=== PATIENT | female | born 1950 | race Two or more races ===

== ENCOUNTER 2018-07-14 15:52 | Inpatient (IN) | payer MEDICAID, OTHER ==
[~2018-07-14] VITALS: Ht 162.6 cm; Wt 72.2 kg
[~2018-07-14 15:52] MED LIST: ALBU8.5H8 INH; AMOX1TAB16 PO; ATOR10TA PO; BENA20TA9 PO; INSU100V10 SQ
[2018-07-14] MEDS ORDERED: IV NS 0.9% 500 ML BAG IV ONE (16:30)
[2018-07-14] MEDS ORDERED: ONDANSETRON HCL/PF 4 MG/2 ML VIAL IVP ONE (16:30)
[2018-07-14] MEDS ORDERED: MORPHINE SULFATE INJ 2 MG/ML DISP.SYRIN IV ONE (16:30)
[2018-07-14] MEDS ORDERED: ONDANSETRON HCL/PF 4 MG/2 ML VIAL ONE (16:32)
[2018-07-14] MEDS ORDERED: MORPHINE SULFATE INJ 4 MG/ML DISP.SYRIN ONE (16:33)
[2018-07-14 16:51] LABS: BASOPHILS # (AUTO) 0.2 /CMM (0.0-0.2); HEMATOCRIT 40 % (33-45); HEMOGLOBIN 12.9 g/dL (11.5-14.8); LYMPHOCYTES # (AUTO) 2.1 /CMM (0.8-4.8); LYMPHOCYTES % (AUTO) 13.3 % (20.0-44.0); MEAN CORPUSCULAR HGB CONC 33 g/dl (31.0-36.0); MEAN CORPUSCULAR VOLUME 77 fL (82-100); MONOCYTES # (AUTO) 1.1 /CMM (0.1-1.30); MONOCYTES % (AUTO) 6.8 % (2.0-12.0); NEUTROPHILS # (AUTO) 11.9 /CMM (1.8-8.9); NEUTROPHILS % (AUTO) 77.9 % (43.0-81.0); PLATELET COUNT (AUTO) 298 /CMM (150-450); RDW COEFFICIENT OF VARIATION 14.7 (11.5-15.0); RED BLOOD CELL COUNT(AUTO) 5.21 MIL/uL (4.0-5.2); WHITE BLOOD COUNT (AUTO) 15.5 K/uL (4.3-11.0)
[2018-07-14 17:12] LABS: ALBUMIN 2.8 g/dL (3.4-5.0); BILIRUBIN,DIRECT 0.1 mg/dL (0.0-0.2); BILIRUBIN,TOTAL 0.4 mg/dL (0.2-1.0); CALCIUM, SERUM 7.9 mg/dL (8.5-10.1); CREATININE 1.4 mg/dL (0.6-1.3); POTASSIUM 4.8 mmol/L (3.5-5.1); TOTAL PROTEIN, SERUM 7.4 g/dL (6.4-8.2)
[2018-07-14] MEDS ORDERED: HYDROMORPHONE 1 MG/1 ML DISP.SYRIN ONE (17:20)
--- NOTE | 2018-07-14 17:23 | NUR ---
CALLED ALIVIA EVERETT FOR PLASTIC EYE TECHNICIAN MD FOR THIS PATIENT, WAS PAGED.
[2018-07-14] MEDS ORDERED: HYDR12.5 PO (17:25)
[2018-07-14] MEDS ORDERED: ALBU8.5H8 IH (17:25)
[2018-07-14] MEDS ORDERED: GABA-532 PO (17:25)
[2018-07-14] MEDS ORDERED: DOCU-106 PO (17:25)
[2018-07-14] MEDS ORDERED: TRAM50TA2 PO (17:25)
[2018-07-14] MEDS ORDERED: CITA10TA9 PO (17:25)
[2018-07-14] MEDS ORDERED: PIRF267C PO (17:25)
[2018-07-14] MEDS ORDERED: HUM10VIA3 SQ (17:26)
[2018-07-14] MEDS ORDERED: INSULIN REGULAR, HUMAN 100 UNIT/ML 10 ML VIAL ONE (17:26)
--- NOTE | 2018-07-14 17:29 | NUR ---
BLOOD SUGAR 453. 10 UNITS REGULAR INSULIN GIVEN SQ R DELTOID. WITNESSED W/ GLORY LAWS. L DELTOID
[2018-07-14] MEDS ORDERED: INSULIN REGULAR, HUMAN 100 UNIT/ML 10 ML VIAL SQ ONE ×2 (17:30→19:00)
[2018-07-14] MEDS ORDERED: HYDROMORPHONE 1 MG/1 ML DISP.SYRIN IV ONE (17:30)
--- NOTE | 2018-07-14 17:43 | NUR ---
FAMILY DOMINIC LEFT CONTACT # [phone]
--- NOTE | 2018-07-14 17:48 | NUR ---
CALLED NURSING SUP REQUESTED TELE BED FOR THIS PATIENT
--- NOTE | 2018-07-14 17:54 | NUR ---
ADMITING STATES COORDINATOR FOR THIS PATIENT WILL PAGE WARRANT CLERK FOR [facility]
[2018-07-14] MEDS ORDERED: VANCOMYCIN 1 GM in IV D5W 250 ML IV ONE (18:00)
--- NOTE | 2018-07-14 18:32 | NUR ---
CALLED TERRENCE LONDON
--- NOTE | 2018-07-14 18:38 | NUR ---
PAGED DR HUTSON FOR CONSULT FOR THIS PATIENT.
[2018-07-14] MEDS ORDERED: INSULIN GLARGINE, 100 UNIT/ML CARTRIDGE SQ ONE ×2 (19:50→22:00)
[2018-07-14 20:00] VITALS: BP 140/66
[2018-07-14 20:15] VITALS: BP 140/66
--- NOTE | 2018-07-14 20:29 | NUR ---
PLACED CALL AND SPOKE TO DR. ALVRAEZ RECEIVE ORDERS FROM DR. ALVAREZ PLACED IN CHART NOTED AND CARRIED OUT FAX TO PHARMACY
--- NOTE | 2018-07-14 20:30 | NUR ---
MS RN NOTES RECEIVE PT FROM [facility]IA [facility] AT 2015 PT A/O X 4, [place] SPEAKING. RESPIRATIONS EVEN AND UNLABORED. HEAD TO TOE ASSESSMENT IS DONE SKIN INTACT. IN STABLE CONDITION SON AT BEDSIDE. NOTED WITH R WRIST SWELLING ELEVATED IN PILLOWS WITH ICE COMPRESSION. MEDICATED FOR PAIN R WRIST. KEPT PT CLEAN AND DRY &COMFORTABLE. NEEDS ATTENDED. WILL CONTINUE TO MONITOR. Addendum: 07/15/18 at 0116 by STACEY VILLATORO RN MEDICATED AND GIVEN PO NORCO 5/325 MG AT 2105
[2018-07-14] MEDS ORDERED: DEXTROSE 50%-WATER 50 ML DISP.SYRIN IV PRN (21:00)
[2018-07-14] MEDS ORDERED: ACETAMINOPHEN 325 MG TABLET PO PRN (21:00)
[2018-07-14] MEDS: HYDROCODONE/APAP 5/325MG 1 EACH TABLET PO PRN (21:05)
[2018-07-14] MEDS ORDERED: INSULIN REGULAR, HUMAN 100 UNIT/ML 3 ML VIAL ONE (21:30)
[2018-07-14] MEDS: BLOOD SUGAR DIAGNOSTIC 1 EACH STRIP VI SCH (21:31)
[2018-07-14] MEDS ORDERED: PIPERACILLIN /TAZOBACTAM 3.375 G VIAL IV ONE (21:43)
[2018-07-14] MEDS: PIPERACILLIN /TAZOBACTAM 3.375 G in IV D5W 50 ML IV SCH (21:49)
[2018-07-14] MEDS: *INSULIN REGULAR(HUMULIN R)HUM 100 UNIT/ML VIAL SQ PRN (22:23)
[2018-07-15] MEDS: HYDROCODONE/APAP 5/325MG 1 EACH TABLET PO PRN ×2 (03:44→08:28)
[2018-07-15] MEDS ORDERED: PIPERACILLIN /TAZOBACTAM 3.375 G VIAL IV ONE (05:17)
[2018-07-15] MEDS: PIPERACILLIN /TAZOBACTAM 3.375 G in IV D5W 50 ML IV SCH (05:28)
[2018-07-15] MEDS: BLOOD SUGAR DIAGNOSTIC 1 EACH STRIP VI SCH ×4 (05:33→22:23)
[2018-07-15] MEDS: INSULIN REGULAR, HUMAN 100 UNIT/ML 3 ML VIAL SQ PRN ×3 (05:34→18:11)
--- NOTE | 2018-07-15 06:07 | NUR ---
MS RN CLOSING NOTES ASLEEP AND EASILY AWAKEN, STABLE, ON 3LPM VIA NC O2 SAT AT 95%. NOT IN DISTRESS. RESPIRATION EVEN AND UNLABORED. KEPT CLEAN AND DRY AND COMFORTABLE, ALL NURSING CARE RENDERED. NEEDS ATTENDED AND ANTICIPATED. NO COMPLAIN OF PAIN AT THIS TIME. ELEVATED R WRIST AT PILLOWS AND CONTINOS ICE COMPRESS. ON LOW BED AT ALL TIMES TO ENSURE SAFETY. SAFE HAZARD FREE ENVIRONMENT PROVIDED. CALL LIGHT WITHIN EASY TO REACH. WILL ENDORSE NEXT SHIFT CONTINUITY OF CARE.
[2018-07-15 07:01] LABS: BASOPHILS % (AUTO) 0.2 % (0.0-2.0); EOSINOPHILS % (AUTO) 1.6 % (0.0-6.0); HEMATOCRIT 39 % (33-45); HEMOGLOBIN 12.8 g/dL (11.5-14.8); LYMPHOCYTES # (AUTO) 3.3 /CMM (0.8-4.8); LYMPHOCYTES % (AUTO) 20.9 % (20.0-44.0); MEAN CORPUSCULAR HGB CONC 32 g/dl (31.0-36.0); MEAN CORPUSCULAR VOLUME 78 fL (82-100); MONOCYTES # (AUTO) 1.6 /CMM (0.1-1.30); MONOCYTES % (AUTO) 10.2 % (2.0-12.0); NEUTROPHILS # (AUTO) 10.7 /CMM (1.8-8.9); NEUTROPHILS % (AUTO) 67.1 % (43.0-81.0); PLATELET COUNT (AUTO) 297 /CMM (150-450); RDW COEFFICIENT OF VARIATION 15.1 (11.5-15.0); RED BLOOD CELL COUNT(AUTO) 5.07 MIL/uL (4.0-5.2); WHITE BLOOD COUNT (AUTO) 15.9 K/uL (4.3-11.0)
[2018-07-15 07:08] LABS: CALCIUM, SERUM 8.5 mg/dL (8.5-10.1); CREATININE 1.4 mg/dL (0.6-1.3); POTASSIUM 4.3 mmol/L (3.5-5.1)
[2018-07-15] MEDS ORDERED: FEE PK DOSING 1 MIN EA MC ONE (07:14)
[2018-07-15] MEDS ORDERED: ALBUTEROL FS 2.5 MG/3 ML VIAL.NEB NEB PRN (07:30)
[2018-07-15] MEDS ORDERED: TRAMADOL HCL 50 MG TABLET PO PRN (07:30)
[2018-07-15 08:00] VITALS: BP 145/60
--- NOTE | 2018-07-15 08:00 | NUR ---
RN NOTES RECEIVED PATIENT IN THE BED A/O X3 [place] SPEAKER, PATIENT HAS NO ACUTE RESPIRATORY DISTRESS. PATIENT WAS C/O PAIN ON RIGHT FOREARM REDNESS, AND PER MD KEEP ELEVATED, ALSO APPLIED ICE ON RIGHT FOREARM. ASSIST BED SIDE COMMODE. PATIENT HAS IV ACCESS ON LEFT HAND INTACT. NEEDS ATTENDED AND ANTICIPATED, CALL LIGHT WITHIN TO REACH, SAFETY PRECAUTION MAINTAINED ALL THE TIME.
--- NOTE | 2018-07-15 08:28 | NUR ---
rn notes ADMINISTERED NARCO 5/325 MG PO PRN FOR RIGHT ARM PIN 05/25 PER PATIENT REQUEST, V/S TAKEN BP 145/ 60, P- 75, ENCOURAGED PATIENT INCREASE FLUID INTAKE. CONTINUED MONITORING.
[2018-07-15] MEDS ORDERED: HYDROCHLOROTHIAZIDE 25 MG TABLET PO SCH (09:00)
[2018-07-15] MEDS ORDERED: GABAPENTIN 400 MG CAPSULE PO PRN (09:00)
--- NOTE | 2018-07-15 09:16 | NUR ---
RN NOTES PER DR MORELOS ONE TIME ORDER MORPHINE SULF 2 MG/ML X1 NOW , ORDER TAKEN AND CARRIED OUT.
--- NOTE | 2018-07-15 09:25 | NUR ---
RN NOTES PER DR MORELOS ASPIRATED FLUIDS FROM RIGHT WRIST. PATIENT TOLERATED PROCEDURE WELL, SPECIMEN SANDED TO THE LAB.
[2018-07-15] MEDS ORDERED: MORPHINE SULFATE INJ 4 MG/ML DISP.SYRIN IV ONE (09:30)
[2018-07-15] MEDS: BENAZEPRIL HCL 20 MG TABLET PO SCH ×3 (10:10→12:54)
[2018-07-15] MEDS: CITALOPRAM HYDROBROMIDE 10 MG TABLET PO SCH (10:10)
[2018-07-15] MEDS: LISINOPRIL (20MG) 20 MG TABLET PO SCH (11:30)
[2018-07-15] MEDS: PIPERACILLIN /TAZOBACTAM 2.25 G in IV D5W 50 ML IV SCH ×3 (12:47→23:37)
[2018-07-15] MEDS: INSULIN GLARGINE, 100 UNIT/ML CARTRIDGE SQ SCH ×2 (12:53→22:27)
[2018-07-15] MEDS: HYDROCODONE/APAP 10/325MG 1 EA TABLET PO PRN ×2 (13:28→18:08)
--- NOTE | 2018-07-15 13:28 | NUR ---
rn notes ADMINISTERED NARCO 10/325 MG PO PRN FOR RIGHT FOREARM PAIN 05/25 PER PATIENT REQUEST, V/S TAKEN BP -151/ 73, P-75, CONTINUED MONITORING.
[2018-07-15] MEDS: VANCOMYCIN 1 GM in IV D5W 250 ML IV SCH (13:35)
[2018-07-15 16:00] VITALS: BP 176/85
--- NOTE | 2018-07-15 18:08 | NUR ---
RN NOTES ADMINISTERED NARCO 10/325 MG/PO PRN FOR RIGHT ARM PAIN 05/25 PER PATIENT REQUEST, ALSO PATIENT WAS C/O NAUSEA, CALLED DR ALVAREZ WAITING FOR RESPOND.
--- NOTE | 2018-07-15 18:38 | NUR ---
RN NOTES RECEDED CALL BACK FROM DR ALVAREZ GET PO ORDER NORVASC 5 MG PO X1 NOW, ZOFRAN 4 MG PO PRN FOR NAUSEA/ VOMITING Q 4HR, ALSO CLONIDINE 0,1 MG Q 6HR PO PRN BP GRATER THAN 160. ORDER TAKEN AND CARRIED OUT.
--- NOTE | 2018-07-15 18:51 | NUR ---
RN NOTES ADMINISTERED ZOFRAN 4 MG/ML IV PUSH FOR NAUSEA PER PATIENT REQUEST, ALSO ADMINISTERED NORVASC 5 MG PO X1 NOW, CONTINUED MONITORING.
[2018-07-15 18:53] VITALS: BP 117/66
[2018-07-15] MEDS ORDERED: CLONIDINE HCL 0.1 MG TABLET PO PRN (19:00)
[2018-07-15] MEDS ORDERED: AMLODIPINE BESYLATE 5 MG TABLET PO ONE (19:00)
--- NOTE | 2018-07-15 19:15 | NUR ---
RN NOTES MEDICATION WERE ADMINISTERED FOR NAUSEA EFFECTIVE, V/S STABLE. ENDORSED ONCOMING NURSE FOR PLAN OF CARE.
--- NOTE | 2018-07-15 19:25 | NUR ---
RN OPENING NOTES PATIENT RECEIVED IN BED, ALERT AND ORIENTED X 4, VERBALLY RESPONSIVE, DAUGHTER AT BEDSIDE. PATIENT WITH NO SOB, DENIES PAIN, IN NO ACUTE DISTRESS. ALL PATIENT'S NEEDS ATTENDED TO AT THIS TIME. WILL CONTINUE TO MONITOR PT.
[2018-07-15 20:00] VITALS: BP 126/64
[2018-07-15] MEDS: *INSULIN REGULAR(HUMULIN R)HUM 100 UNIT/ML VIAL SQ PRN (22:27)
--- NOTE | 2018-07-16 01:07 | NUR ---
RN NOTES PATIENT WITH COMPLAINT OF ITCHING ALL OVER, PER SKIN ASSESSMENT, NO REDNESS NOTED, NO RASHES, PT WITH NO SOB, BREATHING EVEN AND UNLABORED. PER PT, SHE RECEIVED MORPHINE IN THE MORNING. CALLED DR. BELLAMY AND RECEIVED NEW ORDER FOR BENADRYL 25 MG IV PUSH [id number] PRN. ALL ORDERS NOTED AND CARRIED OUT.
[2018-07-16] MEDS: diphenhydrAMINE HCL 50 MG/ML VIAL IV PRN ×3 (01:25→21:23)
[2018-07-16] MEDS: PIPERACILLIN /TAZOBACTAM 2.25 G in IV D5W 50 ML IV SCH ×4 (05:19→23:21)
[2018-07-16] MEDS: ONDANSETRON HCL/PF 4 MG/2 ML VIAL IV PRN (05:24)
[2018-07-16] MEDS: VANCOMYCIN 1 GM in IV D5W 250 ML IV SCH (06:14)
[2018-07-16] MEDS: DOCUSATE SODIUM 100 MG CAPSULE PO PRN (06:21)
[2018-07-16] MEDS: HYDROCODONE/APAP 10/325MG 1 EA TABLET PO PRN ×2 (06:21→16:05)
[2018-07-16 06:39] LABS: BASOPHILS % (AUTO) 0.1 % (0.0-2.0); EOSINOPHILS % (AUTO) 3.2 % (0.0-6.0); HEMATOCRIT 40 % (33-45); HEMOGLOBIN 12.9 g/dL (11.5-14.8); LYMPHOCYTES # (AUTO) 2.2 /CMM (0.8-4.8); LYMPHOCYTES % (AUTO) 13.8 % (20.0-44.0); MEAN CORPUSCULAR HGB CONC 32 g/dl (31.0-36.0); MEAN CORPUSCULAR VOLUME 79 fL (82-100); MONOCYTES # (AUTO) 1.2 /CMM (0.1-1.30); MONOCYTES % (AUTO) 7.6 % (2.0-12.0); NEUTROPHILS # (AUTO) 11.8 /CMM (1.8-8.9); NEUTROPHILS % (AUTO) 75.3 % (43.0-81.0); PLATELET COUNT (AUTO) 311 /CMM (150-450); RDW COEFFICIENT OF VARIATION 15.2 (11.5-15.0); RED BLOOD CELL COUNT(AUTO) 5.12 MIL/uL (4.0-5.2); WHITE BLOOD COUNT (AUTO) 15.7 K/uL (4.3-11.0)
[2018-07-16] MEDS: BLOOD SUGAR DIAGNOSTIC 1 EACH STRIP VI SCH ×4 (06:50→22:31)
[2018-07-16] MEDS: INSULIN REGULAR, HUMAN 100 UNIT/ML 3 ML VIAL SQ PRN ×3 (06:52→16:17)
[2018-07-16 07:02] LABS: CALCIUM, SERUM 8.8 mg/dL (8.5-10.1); CREATININE 1.6 mg/dL (0.6-1.3); POTASSIUM 4.3 mmol/L (3.5-5.1)
--- NOTE | 2018-07-16 07:25 | NUR ---
RN NOTES PATIENT IN BED, ALERT AND ORIENTED, IN NO ACUTE DISTRESS, NO SOB, BREATHING EVEN AND UNLABORED, IV ATB INFUSING WELL. ALL PATIENT'S NEEDS ATTENDED TO. PLACED CALL LIGHT WITHIN EASY REACH. WILL ENDORSE TO AM SHIFT NURSE FOR CONTINUITY OF CARE.
[2018-07-16 08:00] VITALS: BP 159/83
--- NOTE | 2018-07-16 08:00 | NUR ---
RECEIVED PATIENT IN THE BED A/O X3/4 [place] SPEAKER, PATIENT RESTING, MEDICATION WERE ADMINISTERED FOR PAIN EFFECTIVE, SCHEDULED MEDICATION ADMINISTERED, ASSIST ADL'S, AND BED SIDE COMMODE. IV ACCESS ON LEFT HAND INTACT, CALL LIGHT WITHIN TO REACH. NEEDS ATTENDED AND ANTICIPATED. CALL LIGHT WITHIN TO REAC, KEEP RIGHT ARM ELEVATED USING PILLOWS. SON NEXT TO THE BED.
[2018-07-16] MEDS ORDERED: BENAZEPRIL HCL 20 MG TABLET PO SCH (09:00)
[2018-07-16] MEDS: CITALOPRAM HYDROBROMIDE 10 MG TABLET PO SCH (10:03)
[2018-07-16] MEDS: INDOMETHACIN 25 MG CAPSULE PO SCH ×2 (10:03→16:04)
[2018-07-16] MEDS: AMLODIPINE BESYLATE 5 MG TABLET PO SCH (10:03)
[2018-07-16] MEDS: LISINOPRIL (20MG) 20 MG TABLET PO SCH (10:04)
[2018-07-16] MEDS: ESBRIET 267 MG PO SCH ×3 (10:05→16:06)
--- NOTE | 2018-07-16 10:11 | NUR ---
RN NOTES ADMINISTERED BENADRYL 25 MG /ML IV PUSH FOR ITCHING PER PATIENT REQUEST, CONTINUED MONITORING.
--- NOTE | 2018-07-16 13:30 | NUR ---
rn notes PATIENT BACK FROM SURGERY AT THIS TIME, STABLE A/O X4, PATIENT HAS NO ACUTE RESPIRATORY DISTRESS, V/S TAKEN BP -126/64, P-74, T-98, O2-98 ROOM AIR, R-20. PATIENT REFUSED PAIN AT THIS TIME. PATIENT HAS WOUND VAC ON RIGHT HEEL CONTINUED 125 MMHG PRESSURE. KEEP RIGHT LEG ELEVATED WITH PILLOW, KEEP DRESSING DRY, CLEAN, AND INTACT. FIRST DRESSING WILL CHANGE BY DR LEAL ON MONDAY BS-149 MG/DL PATIENT REFUSED COVERAGE, INFUSING NS AT 50 ML/HR ON LEFT AC AREA INTACT. CALL LIGHT WITHIN TO REACH, SAFETY PRECAUTION MAINTAINED ALL THE TIME. Addendum: 07/16/18 at 1547 by FRANTZ BELTRAN RN ABOVE NOTES WRONG 1330 TANNER.
[2018-07-16 16:00] VITALS: BP 141/72
[2018-07-16] MEDS: LACTOBACILLUS RHAMNOSUS GG 1 EACH CAP.SPRINK PO SCH (16:04)
--- NOTE | 2018-07-16 16:05 | NUR ---
RN NOTES ADMINISTERED NARCO 10/325 MG PO PRN FOR RIGHT WRIST PAIN 05/25 PER PATIENT REQUEST. V/S TAKEN STABLE, CALL LIGHT WITHIN TO REACH, SAFETY PRECAUTION MAINTAINED ALL THE TIME.
--- NOTE | 2018-07-16 18:34 | NUR ---
RN NOTES PATIENT EATING DINNER BS-279 MG/DL, COVERAGE GIVEN, ADMINISTERED SCHEDULED MEDICATION, KEEP RIGHT HAND ELEVATED USING PILLOWS, NO ICE PER MD ORDER, ASSIST TURN AND REPOSTION. CALL LIGHT WITHIN TO REACH. ENDORSED ONCOMING NURSE FOR PLAN OF CARE.
--- NOTE | 2018-07-16 19:20 | NUR ---
RN OPENING NOTES RECEIVED PT IN BED, IN NO ACUTE DISTRESS, RIGHT ARM ELEVATED ON A PILLOW ABOVE HEART. ALL PATIENT'S NEEDS ATTENDED TO. PLACED CALL LIGHT WITHIN REACH. PT'S SON AT BEDSIDE. WILL CONTINUE TO MONITOR.
[2018-07-16 20:00] VITALS: BP 132/69
[2018-07-16] MEDS ORDERED: INSULIN GLARGINE, 100 UNIT/ML CARTRIDGE SQ SCH (22:00)
[2018-07-16] MEDS: *INSULIN REGULAR(HUMULIN R)HUM 100 UNIT/ML VIAL SQ PRN (22:33)
[2018-07-17] MEDS: VANCOMYCIN 1 GM in IV D5W 250 ML IV SCH (00:42)
[2018-07-17] MEDS: PIPERACILLIN /TAZOBACTAM 2.25 G in IV D5W 50 ML IV SCH (05:48)
--- NOTE | 2018-07-17 06:25 | NUR ---
RN CLOSING NOTES PATIENT IN BED, ALERT AND ORIENTED X 4, ASLEEP BUT EASILY AROUSABLE, VERBALLY RESPONSIVE, NO SOB NOTED, BREATHING EVEN AND UNLABORED, ALL DUE MEDICATION GIVEN, ALL PATIENT'S NEEDS ATTENDED TO THROUGHOUT THE SHIFT. PLACED CALL LIGHT WITHIN EASY REACH. WILL ENDORSE TO AM SHIFT NURSE FOR CONTINUITY OF CARE.
[2018-07-17] MEDS: HYDROCODONE/APAP 10/325MG 1 EA TABLET PO PRN (06:30)
[2018-07-17] MEDS: DOCUSATE SODIUM 100 MG CAPSULE PO PRN (06:30)
[2018-07-17] MEDS: INSULIN REGULAR, HUMAN 100 UNIT/ML 3 ML VIAL SQ PRN ×2 (06:55→12:25)
[2018-07-17] MEDS: BLOOD SUGAR DIAGNOSTIC 1 EACH STRIP VI SCH ×2 (06:56→12:23)
[2018-07-17 07:33] LABS: CALCIUM, SERUM 8.9 mg/dL (8.5-10.1); CREATININE 1.4 mg/dL (0.6-1.3); POTASSIUM 4.1 mmol/L (3.5-5.1)
[2018-07-17 07:34] LABS: BASOPHILS % (AUTO) 0.1 % (0.0-2.0); EOSINOPHILS % (AUTO) 4.2 % (0.0-6.0); HEMATOCRIT 40 % (33-45); HEMOGLOBIN 12.8 g/dL (11.5-14.8); LYMPHOCYTES # (AUTO) 1.8 /CMM (0.8-4.8); LYMPHOCYTES % (AUTO) 10.3 % (20.0-44.0); MEAN CORPUSCULAR HGB CONC 32 g/dl (31.0-36.0); MEAN CORPUSCULAR VOLUME 77 fL (82-100); MONOCYTES # (AUTO) 1.4 /CMM (0.1-1.30); MONOCYTES % (AUTO) 7.9 % (2.0-12.0); NEUTROPHILS # (AUTO) 13.6 /CMM (1.8-8.9); NEUTROPHILS % (AUTO) 77.5 % (43.0-81.0); PLATELET COUNT (AUTO) 289 /CMM (150-450); RDW COEFFICIENT OF VARIATION 15.4 (11.5-15.0); RED BLOOD CELL COUNT(AUTO) 5.22 MIL/uL (4.0-5.2); WHITE BLOOD COUNT (AUTO) 17.6 K/uL (4.3-11.0)
[2018-07-17 08:05] VITALS: BP 123/58
[2018-07-17 08:08] LABS: EOSINOPHILS % (MANUAL) 3 % (0-4); LYMPHOCYTES % (MANUAL) 10 % (16-48); MONOCYTES % (MANUAL) 7 % (0-11.0)
[2018-07-17 08:09] LABS: NEUTROPHILS % (MANUAL) 80 (42-76)
--- NOTE | 2018-07-17 08:20 | NUR ---
m/s critical care paramedic: md visit seen and examined by dr. hubbard with order to discharge home and f/u with PCP in one week. order acknowledged. pt made aware.
[2018-07-17] MEDS ORDERED: CEPH-570 PO (08:22)
[2018-07-17 08:37] VITALS: BP 123/58
[2018-07-17] MEDS: AMLODIPINE BESYLATE 5 MG TABLET PO SCH (08:37)
[2018-07-17] MEDS: LISINOPRIL (20MG) 20 MG TABLET PO SCH (08:37)
[2018-07-17] MEDS: CITALOPRAM HYDROBROMIDE 10 MG TABLET PO SCH (08:37)
[2018-07-17] MEDS: LACTOBACILLUS RHAMNOSUS GG 1 EACH CAP.SPRINK PO SCH (08:37)
[2018-07-17] MEDS: ESBRIET 267 MG PO SCH ×2 (08:37→12:24)
[2018-07-17] MEDS: INDOMETHACIN 25 MG CAPSULE PO SCH (08:37)
[2018-07-17] MEDS: ONDANSETRON HCL/PF 4 MG/2 ML VIAL IV PRN (10:30)
--- NOTE | 2018-07-17 10:30 | NUR ---
m/s wind operations manager: p.t. eval after p.t. eval, pt c/o dizziness. b/p check 122/70, 69 and pt vomited. zofran 4mg ivp given by rn. pt request for sugar [id number]. assisted back to bed by p.t. pt feels better after zofran and back to bed. instructed to call for assistance. will continue to monitor. per pt, her daughter will be here at noon to pick her up. ice pack applied to right upper ext and elevated above heart as recommendation. will continue to monitor.
--- NOTE | 2018-07-17 11:00 | NUR ---
m/s hammerer helper: notes pt sounds asleep. resp. even and unlabored. spoke to son earlier and will be here around noon to pick her up.
--- NOTE | 2018-07-17 12:00 | NUR ---
m/s power and recovery supervisor: d'c instructions discharged instructions with prescriptions given to daughter and educated daughter re: medications; daughter verbalized understanding. h/l removed with tip intact with no bleeding, no redness, and no swelling noted. daughter forgot to bring clothes and will be back to bring it.
--- NOTE | 2018-07-17 13:25 | NUR ---
m/s statistical reporting analyst: discharged discharged home accompanied by daughter via private car in stable condition.
== END 2018-07-17 13:25 | disposition home or self-care (01) | DRG 383 ==
LOC: ER 15:54 → TELE 19:28 → MED 20:30
PROVIDERS: ADMIT Internal Medicine; ATTEND Internal Medicine
PROC: 0R9N3ZX Drainage of Right Wrist Joint, Percutaneous Approach, Diagnostic (ICD-10-PCS; principal; 2018-07-15)
DX: L03.113 Cellulitis of right upper limb (principal); E11.22 Type 2 diabetes mellitus with diabetic chronic kidney disease; E11.40 Type 2 diabetes mellitus with diabetic neuropathy, unspecified; I27.20 Pulmonary hypertension, unspecified; E44.1 Mild protein-calorie malnutrition; N18.3 Chronic kidney disease, stage 3 (moderate); E87.1 Hypo-osmolality and hyponatremia; I12.9 Hypertensive chronic kidney disease with stage 1 through stage 4 chronic kidney disease, or unspecified chronic kidney disease; G89.29 Other chronic pain; Z79.4 Long term (current) use of insulin; M00.9 Pyogenic arthritis, unspecified; E66.9 Obesity, unspecified; Z68.27 Body mass index [BMI] 27.0-27.9, adult; H40.9 Unspecified glaucoma; Z90.49 Acquired absence of other specified parts of digestive tract; Z90.710 Acquired absence of both cervix and uterus
CPT/HCPCS: 36415; 73110; 80048-TC; 80076-TC; 80202-TC; 82010-TC; 82962-TC; 83605-TC; 84550-TC; 85025-TC; 85652-TC; 86140-TC; 87040-TC; 87070-TC; 87081-TC; 89060-TC; 97116-TC; 97530-TC; A4606; J1170; J1200; J1815; J2270; J2405; J2543; J3370; J7030; J7040; J7060; Z7610

== ENCOUNTER 2018-07-19 08:09 | Emergency (ER) | payer MEDICAID ==
[~2018-07-19] VITALS: Ht 160 cm; Wt 68.0 kg
[~2018-07-19 08:09] MED LIST changes: +ALBU8.5H8 IH; -ALBU8.5H8 INH; -AMOX1TAB16 PO; -ATOR10TA PO; +CEPH-570 PO; +CITA10TA9 PO; +DOCU-106 PO; +GABA-532 PO; +HUM10VIA3 SQ; +HYDR12.5 PO; -INSU100V10 SQ; +PIRF267C PO; +TRAM50TA2 PO
--- NOTE | 2018-07-19 08:10 | NUR ---
WILLIAN FROM HOME DT NEAR SYNCOPAL EPISODE. PATIENT RECEIVED AWAKE AND ALERT. NOT IN DISTRESS. SKIN IS WARM TO TOUCH AND NON DIAPHORETIC. AFEBRILE. NO KO REPORTED. PATIENT NOTED WITH LFT ARM PAIN AND REDNESS, WARM TO TOUCH THAT THAS BEEN GOING. PT HAD THE SAME PROBLEM ON RIGHT ARM AND WAS GIVEN KEFLEX. VSS
--- NOTE | 2018-07-19 08:30 | NUR ---
PATIENT TO BE TRANSFERRED TO [facility] PER INSURANCE
[2018-07-19] MEDS ORDERED: MORPHINE SULFATE INJ 4 MG/ML DISP.SYRIN ONE ×2 (08:32→10:42)
[2018-07-19] MEDS ORDERED: ONDANSETRON HCL/PF 4 MG/2 ML VIAL ONE (08:32)
[2018-07-19] MEDS: IV NS 0.9% 500 ML BAG IV ONE (08:37)
[2018-07-19] MEDS: ONDANSETRON HCL/PF 4 MG/2 ML VIAL IVP ONE (08:37)
[2018-07-19] MEDS: MORPHINE SULFATE INJ 2 MG/ML DISP.SYRIN IV ONE ×2 (08:38→10:44)
--- NOTE | 2018-07-19 08:42 | NUR ---
US TECH AT BEDSIDE.
[2018-07-19 08:54] LABS: BASOPHILS % (AUTO) 0.2 % (0.0-2.0); EOSINOPHILS % (AUTO) 0.2 % (0.0-6.0); HEMATOCRIT 38 % (33-45); LYMPHOCYTES # (AUTO) 1.2 /CMM (0.8-4.8); LYMPHOCYTES % (AUTO) 5.4 % (20.0-44.0); MEAN CORPUSCULAR HGB CONC 32 g/dl (31.0-36.0); MEAN CORPUSCULAR VOLUME 78 fL (82-100); MONOCYTES # (AUTO) 1.5 /CMM (0.1-1.30); MONOCYTES % (AUTO) 6.8 % (2.0-12.0); NEUTROPHILS # (AUTO) 19.3 /CMM (1.8-8.9); NEUTROPHILS % (AUTO) 87.4 % (43.0-81.0); PLATELET COUNT (AUTO) 317 /CMM (150-450); RDW COEFFICIENT OF VARIATION 15.1 (11.5-15.0); RED BLOOD CELL COUNT(AUTO) 4.93 MIL/uL (4.0-5.2)
[2018-07-19 08:57] LABS: APPEARANCE,URINE CLEAR (CLEAR); BILIRUBIN,URINE NEGATIVE (NEGATIVE); BLOOD, URINE NEGATIVE Ery/uL (NEGATIVE); COLOR,URINE YELLOW (YELLOW); KETONES,URINE NEGATIVE (NEGATIVE); LEUKOCYTE ESTERASE ,URINE NEGATIVE (NEGATIVE); NITRITE, URINE NEGATIVE (NEGATIVE); PH,URINE 5.5 (5.0-8.0); PROTEIN,URINE 1+ mg/dl (NEGATIVE); UGLUCOSE TRACE mg/dL (NEGATIVE)
[2018-07-19] MEDS: VANCOMYCIN 1 GM in IV D5W 250 ML IV ONE (09:00)
[2018-07-19 09:04] LABS: BACTERIA,URINE Few /HPF (None Seen); RBC,URINE NONE SEEN /HPF (0-2); SQUAMOUS EPITHELIAL CELL,UR Few /HPF (None Seen); WBC,URINE 0-2 /HPF (0-3)
[2018-07-19 09:07] LABS: CALCIUM, SERUM 8.8 mg/dL (8.5-10.1); CARBON DIOXIDE 22 mmol/L (21-32); CHLORIDE 93 mmol/L (98-107); CREATININE 1.7 mg/dL (0.6-1.3); GLUCOSE 184 mg/dL (74-106); POTASSIUM 4.2 mmol/L (3.5-5.1); SODIUM SERUM 124 mmol/L (136-145); UREA NITROGEN, BLOOD 45 mg/dL (7-18)
[2018-07-19 09:12] LABS: ALANINE AMINOTRANSFERASE 54 U/L (12-78); ALKALINE PHOSPHATASE 225 U/L (46-116); ASPARTATE AMINOTRANSFERASE 23 U/L (15-37); BILIRUBIN,DIRECT 0.2 mg/dL (0.0-0.2); BILIRUBIN,TOTAL 0.5 mg/dL (0.2-1.0); TOTAL PROTEIN, SERUM 7.4 g/dL (6.4-8.2)
[2018-07-19 09:13] LABS: INR 1.02 (0.87-1.13)
[2018-07-19 09:17] LABS: TROPONIN I < 0.017 ng/mL (0.00-0.056)
[2018-07-19] MEDS: IV NS 0.9% 1,000 ML IV ONE (09:27)
[2018-07-19] MEDS: PIPERACILLIN /TAZOBACTAM 3.375 G in IV D5W 50 ML IV ONE (09:28)
[2018-07-19 09:37] LABS: ALBUMIN 2.1 g/dL (3.4-5.0)
--- NOTE | 2018-07-19 09:44 | NUR ---
[facility] MANAGER TO CALL BACK WITH UPDATE ON ADMISSION STATUS.
--- NOTE | 2018-07-19 10:00 | NUR ---
spoke to mer watch case polisher regarding pt, per mer will call back with information
--- NOTE | 2018-07-19 10:33 | NUR ---
DR. RENDON FROM [facility] CALLED AND SPOKE WITH DR. BEEBE REGARDING TRANSFER.
--- NOTE | 2018-07-19 10:46 | NUR ---
spoke to mer medical case manager, per mer pt will be transferred to [facility]. will wait for more transfer information.
[2018-07-19 10:47] VITALS: BP 152/68
--- NOTE | 2018-07-19 11:13 | NUR ---
REPORT INFO: #[phone] tele Jaja LAWS [phone]
--- NOTE | 2018-07-19 11:23 | NUR ---
YONG DUPLIGRAPH OPERATOR FROM [facility] ETA [id number]
--- NOTE | 2018-07-19 12:23 | NUR ---
PT TRANSPORTED TO [facility]. VSS
== END 2018-07-19 12:24 | disposition short-term general hospital (02) ==
LOC: ER 08:10
DX: R55 Syncope and collapse (principal); L03.114 Cellulitis of left upper limb; E87.1 Hypo-osmolality and hyponatremia; I10 Essential (primary) hypertension; E11.9 Type 2 diabetes mellitus without complications; H40.9 Unspecified glaucoma; Z98.890 Other specified postprocedural states; Z79.4 Long term (current) use of insulin; Z79.899 Other long term (current) drug therapy
CPT/HCPCS: 36415; 71045; 80048; 80076; 81001; 83605; 84484; 85025; 85730; 87040 ×2; 87086; 93005; 93971; 96365; 96368; 96375; 96376; 99285; A4606; J2270 ×2; J2405; J2543; J3370; J7040; J7060 ×2; Z7610; 81000-TC